=== PATIENT | female | born 1965 | race Caucasian/White ===

== ENCOUNTER 2021-07-06 15:25 | Emergency (ER) | payer BC ==
[2021-07-06 19:02] LABS: HEMOGLOBIN 13.2 gm/dl (12.3-15.3); RED BLOOD COUNT 4.73 M/UL (4.00-5.10); WHITE BLOOD COUNT 8.6 K/UL (4.5-11.0)
[2021-07-06 19:41] LABS: BUN/CREATININE RATIO 13 (0-10)
[2021-07-06] MEDS ORDERED: ONDANSETRON ODT4 MG SL (23:13)
[2021-07-06] MEDS ORDERED: IBUPROFEN800 MG PO (23:13)
== END 2021-07-06 23:33 | disposition home or self-care (01) ==
LOC: ER1 15:25
PROVIDERS: Physician Assistant
DX: R19.00 Intra-abdominal and pelvic swelling, mass and lump, unspecified site (principal); E78.5 Hyperlipidemia, unspecified; R50.9 Fever, unspecified; Z20.822 Contact with and (suspected) exposure to COVID-19; Z90.49 Acquired absence of other specified parts of digestive tract; Z91.041 Radiographic dye allergy status; Z88.2 Allergy status to sulfonamides
CPT/HCPCS: 71045; 76830; 80053; 81001; 83605; 83690; 84703; 85025; 87040; 87086; 99284; J7030; U0002